=== PATIENT | male | born 1980 | race Hispanic/Latino ===

== ENCOUNTER 2019-02-19 19:41 | Emergency (ER) | payer OTHER ==
[2019-02-19] MEDS ORDERED: IBUPROFEN 600 MG TABLET ONE (19:59)
== END 2019-02-19 20:19 | disposition home or self-care (01) ==
LOC: EDH 19:41
DX: S93.601A Unspecified sprain of right foot, initial encounter (principal); Z90.49 Acquired absence of other specified parts of digestive tract; W18.30XA Fall on same level, unspecified, initial encounter; Y93.01 Activity, walking, marching and hiking; Y92.098 Other place in other non-institutional residence as the place of occurrence of the external cause; Y99.8 Other external cause status
CPT/HCPCS: 73630